=== PATIENT | female | born 1960 | race Caucasian/White ===

== ENCOUNTER → 2018-01-10 | Day surgery (SDC) | payer OTHER ==
[~2018-01-10] VITALS: Ht 167.6 cm; Wt 95.3 kg
[~2018-01-10] MED LIST: BACTRIM DS 8001 TAB PO; BACTROBAN OINT.15 GM TOP
--- NOTE | 2018-01-10 12:31 | Operative Report ---
Operative/Inv Procedure Report Surgery Date: 01/10/18 Name of Procedure: Excision deep left anterior chest wall lipoma Pre-Operative Diagnosis: Lipoma of the chest Post-Operative Diagnosis: Same Estimated Blood Loss: scant Surgeon/Social Media Senior Associate: Aston WALDEN,Scotty Ponce Anesthesia: local monitored anesthesi Specimens: 4 cm lipoma in 2 pieces Operative/Procedure Note Note: After consent patient brought to the operating room laid supine. Sedation was obtained in her left lower chest wall was prepped and draped. Skin overlying the mass was infiltrated local anesthesia and a transverse incision made sharply. We immediately met with a lipoma which was circumferentially dissected. Portions of the lipoma extended below the fascia. The lipoma was completely resected with cautery and passed off the field in 2 pieces. Wound was then reexplored. There were no further fingers of lipoma identified. Wound was irrigated with normal saline and closed in layers of 3-0 and 4-0 Vicryl sutures. Steri-Strips and sterile dressing were applied. Sponge needle counts are correct CC: Subhash WALDEN,Talib Chao
== END ==
LOC: STS 01:32
DX: D17.1 Benign lipomatous neoplasm of skin and subcutaneous tissue of trunk (principal); E03.9 Hypothyroidism, unspecified; E11.40 Type 2 diabetes mellitus with diabetic neuropathy, unspecified; Z79.84 Long term (current) use of oral hypoglycemic drugs; I10 Essential (primary) hypertension; F17.200 Nicotine dependence, unspecified, uncomplicated
CPT/HCPCS: 88304; 93005; 93010; J0690; J2250